=== PATIENT | female | born 1995 | race Two or more races ===

== ENCOUNTER 2024-08-08 19:58 | Emergency (ER) | payer SELFPAY ==
[2024-08-08] MEDS: Ibuprofen 600 MG Tab PO ONE (21:28)
[2024-08-08] MEDS: Cyclobenzaprine 10 MG Tab PO ONE (21:28)
== END 2024-08-08 21:32 | disposition home or self-care (01) ==
LOC: MW.ED 19:58
DX: M26.601 Right temporomandibular joint disorder, unspecified (principal); Z75.8 Other problems related to medical facilities and other health care
CPT/HCPCS: 81025; 99283; A9270